=== PATIENT | female | born 1970 | race Caucasian/White ===

== ENCOUNTER 2017-11-21 19:29 | Inpatient (IN) | payer SELFPAY ==
[~2017-11-21] VITALS: Ht 144.8 cm; Wt 59.0 kg
[2017-11-21] MEDS ORDERED: SODIUM CHLORIDE 0.9% 1,000 ML IV ONE (20:56)
[2017-11-21] MEDS ORDERED: MORPHINE SULFATE 4 MG/ML CPJ (NOT FOR IM USE) IV STA (20:56)
[2017-11-21] MEDS ORDERED: ONDANSETRON HCL 4MG/2ML VIAL IV STA (20:56)
[2017-11-21 21:27] LABS: BASOPHILS % 0.9 % (0.0-2.0); HEMATOCRIT. 42.1 % (36.0-48.0); HEMOGLOBIN. 13.9 g/dL (12.0-16.0); LYMPHOCYTES % 13.8 % (20.0-50.0); MEAN CORPUSCULAR VOLUME 78.3 fL (81.0-99.0); MEAN PLATELET VOLUME 8.5 fl (7.4-10.4); MONOCYTES % 3.7 % (2.0-8.0); NEUTROPHILS % 81.6 % (40.0-76.0); PLATELET 431 x1000/uL (130-400); RED BLOOD CELL COUNT 5.37 mill/uL (4.2-5.4); RED CELL DISTRIBUTION WIDTH 16.6 % (11.6-14.6)
[2017-11-21 21:28] LABS: CHLORIDE 102 mEq/L (98-107)
[2017-11-21 22:13] LABS: CLARITY URINE TURBID (CLEAR); COLOR URINE DARK YELLOW (YELLOW); KETONES URINE NEGATIVE (NEGATIVE); LEUKOCYTE ESTERASE URINE NEGATIVE (NEGATIVE); NITRITE URINE NEGATIVE (NEGATIVE); OCCULT BLOOD URINE NEGATIVE (NEGATIVE); PROTEIN URINE 1+ (NEGATIVE); SPECIFIC GRAVITY URINE 1.022 (1.005-1.030); UROBILINOGEN URINE 0.2 E.U./dL (0.2-1.0)
[2017-11-22] MEDS ORDERED: MORPHINE SULFATE 4 MG/ML CPJ (NOT FOR IM USE) IV ONE (00:15)
[2017-11-22] MEDS ORDERED: CALCIUM CHLORIDE 1GM/10ML SYR IV ONE (02:30)
[2017-11-22] MEDS ORDERED: INSULIN REGULAR (HUMULIN R) 300UNITS/3ML IV ONE (02:30)
[2017-11-22] MEDS ORDERED: DEXTROSE 50% WATER 50ML SYRINGE IV ONE (02:30)
[2017-11-22] MEDS ORDERED: SODIUM BICARBONATE 8.4% 1 MEQ/ML 50ML SYR IV ONE (02:30)
[2017-11-22] MEDS ORDERED: KETOROLAC 15MG/ML VIAL IV PRN (08:45)
[2017-11-22] MEDS ORDERED: IPRATROPIUM/ALBUTEROL 0.5-3(2.5)MG/3ML NEB INH PRN (08:45)
[2017-11-22] MEDS ORDERED: NITROGLYCERIN 0.4MG TABLET SL SL PRN (08:45)
[2017-11-22] MEDS ORDERED: LORAZEPAM 0.5MG TABLET PO PRN (08:45)
[2017-11-22] MEDS ORDERED: GUAIFENESIN 200MG/10ML SUGAR FREE UDC PO PRN (08:45)
[2017-11-22] MEDS ORDERED: CLONIDINE 0.1MG TABLET PO PRN (08:45)
[2017-11-22] MEDS ORDERED: MAGNESIUM/ALUMINUM HYDROXIDE/SIMETHICONE 30ML UDC PO PRN (08:45)
[2017-11-22] MEDS ORDERED: NA PHOS,M-B/NA PHOS,DI-BA ENEMA 118ML PR PRN (09:00)
[2017-11-22] MEDS ORDERED: DOCUSATE SODIUM 100MG CAPSULE PO PRN (09:00)
[2017-11-22] MEDS: DIPHENHYDRAMINE 50MG/ML VIAL IV PRN ×2 (09:29→13:22)
[2017-11-22] MEDS: ENOXAPARIN 40MG/0.4ML SYR SUBCUT SCH (09:30)
[2017-11-22] MEDS: FAMOTIDINE 20MG TABLET PO SCH ×2 (09:32→20:38)
[2017-11-22] MEDS: ASCORBIC ACID 500 MG TABLET PO SCH ×2 (09:33→20:38)
[2017-11-22] MEDS ORDERED: LEVOFLOXACIN 500MG PREMIX 100 ML IV SCH (10:00)
[2017-11-22 10:57] VITALS: BP 141/75
[2017-11-22 11:10] VITALS: BP 141/75
[2017-11-22 12:29] VITALS: BP 123/75
[2017-11-22] MEDS ORDERED: DIPHENHYDRAMINE 50MG/ML VIAL IV NR (13:30)
[2017-11-22] MEDS: METRONIDAZOLE 500 MG PREMIX 100 ML IV SCH ×2 (15:20→18:00)
[2017-11-22 16:21] VITALS: BP 124/80
[2017-11-22] MEDS ORDERED: DIPHENHYDRAMINE 50MG/ML VIAL IV PRN (16:40)
[2017-11-22 18:35] LABS: *AMPHETAMINES SCREEN URINE NEGATIVE (NEGATIVE); *BARBITURATES SCREEN URINE NEGATIVE (NEGATIVE); *BENZODIAZEPINES SCREEN URINE NEGATIVE (NEGATIVE); *COCAINE SCREEN URINE NEGATIVE (NEGATIVE); CANNABINOID URINE SCREEN NEGATIVE (NEGATIVE); PHENCYCLIDINE URINE SCREEN NEGATIVE (NEGATIVE)
[2017-11-22 18:36] LABS: METHADONE URINE SCREEN NEGATIVE (NEGATIVE)
[2017-11-22 18:41] LABS: OPIATES URINE SCREEN PRESUMTIVE POSITIVE (NEGATIVE)
[2017-11-22 20:00] VITALS: BP 102/73
[2017-11-22] MEDS ORDERED: IOHEXOL-300 100 ML BOTTLE ONE (20:39)
[2017-11-22] MEDS ORDERED: ZOLPIDEM TARTRATE 5MG TABLET PO PRN (21:00)
[2017-11-23] VITALS: BP 130/79
[2017-11-23] MEDS: ONDANSETRON HCL 4MG/2ML VIAL IV PRN ×2 (01:03→06:54)
[2017-11-23] MEDS: METRONIDAZOLE 500 MG PREMIX 100 ML IV SCH (01:03)
[2017-11-23 04:00] VITALS: BP 143/94
[2017-11-23 08:00] VITALS: BP 147/94
[2017-11-23] MEDS: ENOXAPARIN 40MG/0.4ML SYR SUBCUT SCH (09:55)
[2017-11-23] MEDS: ASCORBIC ACID 500 MG TABLET PO SCH (09:55)
[2017-11-23] MEDS: FAMOTIDINE 20MG TABLET PO SCH (09:55)
[2017-11-23] MEDS ORDERED: LEVOFLOXACIN 250MG PREMIX 50 ML IV SCH (10:00)
[2017-11-23 12:06] VITALS: BP 150/96
[2017-11-23 13:12] VITALS: BP 150/96
[2017-11-23 16:00] VITALS: BP 149/80
[2017-11-24] MEDS ORDERED: FAMOTIDINE 20MG TABLET PO SCH (09:00)
== END 2017-11-23 17:32 | disposition home or self-care (01) | DRG 249 ==
LOC: ER 19:29 → 8WST 11-22 05:22 → ENRESERV 11-22 07:09
PROVIDERS: ADMIT Internal Medicine; ATTEND Internal Medicine
DX: K52.9 Noninfective gastroenteritis and colitis, unspecified (principal); R18.8 Other ascites; E44.1 Mild protein-calorie malnutrition; E87.1 Hypo-osmolality and hyponatremia; E11.9 Type 2 diabetes mellitus without complications; N39.0 Urinary tract infection, site not specified; Z88.8 Allergy status to other drugs, medicaments and biological substances; Z68.28 Body mass index [BMI] 28.0-28.9, adult
CPT/HCPCS: 36415; 70491; 74176; 80048; 80053; 80305; 81003; 82962; 83036; 83690; 85025; 87493; 92610; 93970; 96374; 96375; 96376; 99285; C1893; J1200; J1650; J1815; J1956; J2270; J2405; J3490; J7030; J7040; J7050; Q9967